=== PATIENT | male | born 1930 | race Caucasian/White ===

== ENCOUNTER → 2017-08-02 | Outpatient (CLI) | payer OTHER ==
[~2017-08-02] MED LIST: CLTP PO; CLX20 PO; FISHOIL PO; LISI-461 PO; LSX20 PO; METO-157 PO; OPTIRAY 320 IV PRN; POTA10CA28 PO; PRLSR20 PO; PROP80TA2 PO; RQPUNK PO; SIMV20TA2 PO
--- NOTE | 2017-08-03 06:27 | DIAGNOSTIC IMAGING REPORT ---
CT OF THE ABDOMEN AND PELVIS WITH AND WITHOUT CONTRAST HEMATURIA PROTOCOL CLINICAL HISTORY: Hematuria. COMPARISON STUDY: [facility]UB April 24, 2008 and whole body bone scan June 20, 2007. TECHNIQUE: Unenhanced and split bolus phase imaging of the abdomen and pelvis was performed. Injection of 119 cc Optiray 320 IV was uneventful. A dose lowering technique was utilized adhering to the principles of ALARA. CT DOSE: 1867.24 mGycm FINDINGS: Note is made of a 6 mm subpleural nodule within the right middle lobe. There is a calcified subcarinal lymph node. A few calcified pulmonary nodules are noted. No renal, ureteral or bladder calculi are identified. There is no hydronephrosis or hydroureter. There is moderate renal cortical thinning. Note is made of an apparent 2.9 x 1.8 cm hypodensity within the mid aspect of the left renal pelvis shown on axial image 178 of 496. This could reflect a mass or a prominent column. No additional masses are identified. A small bladder diverticulum arising from the right anterior aspect the bladder is present. No additional bladder abnormalities are identified. A few subcentimeter hypodense hepatic lesions likely reflect cysts. There are granulomas within the liver and spleen. The adrenal glands and pancreas are unremarkable. There is mild interval dilatation of the distal descending thoracic aorta measures 4 cm. There is mild aneurysmal dilatation of the abdominal aorta at the level the renal arteries that measures 3.3 cm. Note is made of a 5.2 x 4.8 cm infrarenal abdominal aortic aneurysm. There is left colon diverticulosis without evidence for diverticulitis. There are no suspicious osseous lesions. There are brachytherapy CT within the prostate. There are fat-containing bilateral inguinal hernias. IMPRESSION: 1. 2.8 x 1.8 cm hypodensity within the mid left renal pelvis. This could reflect a mass such as a urothelial lesion or a column of Romaine. An MRI of the kidneys may be of benefit in further differentiation. 2. No urinary calculi or hydronephrosis. 3. 5.2 x 4.8 cm infrarenal abdominal aortic aneurysm. 4. 6 mm subpleural right middle lobe nodule which is indeterminate although likely benign. Electronically signed by: Erich Bolden M.D. 08/03/2017 6:26 AM Dictated Date/Time: 08/02/2017 2:53 PM
== END | disposition home or self-care (01) ==
LOC: C.CTS 13:41
PROVIDERS: ATTEND Nurse Practitioner Adult Health
DX: R31.9 Hematuria, unspecified (principal); R91.1 Solitary pulmonary nodule; C61 Malignant neoplasm of prostate

== ENCOUNTER → 2017-08-02 | Outpatient (CLI) | payer OTHER ==
[~2017-08-02] MED LIST changes: -OPTIRAY 320 IV PRN
== END | disposition home or self-care (01) ==
LOC: C.PATHSPEC 10:51
PROVIDERS: ATTEND Urology
DX: R31.9 Hematuria, unspecified (principal); C61 Malignant neoplasm of prostate

== ENCOUNTER → 2017-09-03 | Outpatient (CLI) | payer OTHER ==
[~2017-09-03] MED LIST changes: +GADAVIST IV PRN
[2017-09-03 09:18] LABS: BLOOD UREA NITROGEN 21 mg/dl (7-18); BUN/CREATININE RATIO 15.4 (10-20); CREATININE 1.33 mg/dl (0.60-1.40); PROSTATE SPECIFIC ANTIGEN < 0.010 ng/ml (0.000-4.000)
--- NOTE | 2017-09-03 16:14 | DIAGNOSTIC IMAGING REPORT ---
ABDOMEN COMBO HISTORY: 86 years-old Male R31.9 [id number] Kidney lesionnot diabetic, no metal implant acute hematuria and diabetes. Follow-up study to assess 2.8 x 1.8 cm indeterminate lesion of the mid left kidney seen on CT 08/02/2017. History of 5.2 cm infrarenal abdominal aortic aneurysm. COMPARISON: CT abdomen and pelvis 08/02/2017 TECHNIQUE: Multiplanar multisequence MRI of the abdomen was obtained both with and without the use of 6 mL Gadavist utilizing kidney mass institutional protocol. FINDINGS: Exam is mildly motion degraded. The previously noted 6 mm subpleural nodule of the right middle lobe is not clearly seen on this study. Fusiform infrarenal abdominal aortic aneurysm is again seen measuring up to 4.5 cm in transverse dimension as seen on image 1 of series 4. There is mild convex right curvature of the upper lumbar spine. Multilevel degenerative changes of the spine and pelvis are noted. Image gallbladder, liver, spleen and pancreas are unremarkable. No biliary ductal dilation. No pathologic adenopathy identified. Mild nonspecific perinephric edema is again seen bilaterally which appears unchanged from comparison CT. Multifocal mild renal parenchyma thinning appears generally symmetric. There is a focal 2.8 x 1.7 x 1.8 cm heterogeneous centrally T2 hyperintense thick-walled lesion of the interpolar left kidney as seen on image 12 of series 4 and image 13 of series 9 projecting into the renal sinus correlating with the abnormality seen on comparison CT study. This lesion demonstrates thick nodular peripheral and internal septal enhancement as seen on image 32 of series 1102 without extension into the renal vein identified. No capsular extension outside the left perinephric space. No adenopathy identified. IMPRESSION: 1. 2.8 x 1.7 x 1.8 cm heterogeneous centrally T2 hyperintense enhancing thick-walled lesion of the interpolar left kidney as above is very suspicious for renal cell carcinoma. No extension into the renal vein or outside the left perinephric space. 2. Fusiform infrarenal abdominal aortic aneurysm redemonstrated. The above report was generated using voice recognition software. It may contain grammatical, syntax or spelling errors. Electronically signed by: Sheldon Gallardo M.D. 09/03/2017 4:13 PM Dictated Date/Time: 09/03/2017 10:26 AM
== END | disposition home or self-care (01) ==
LOC: C.MRI 08:18
PROVIDERS: ATTEND Urology
DX: N28.9 Disorder of kidney and ureter, unspecified (principal); R31.9 Hematuria, unspecified; R39.9 Unspecified symptoms and signs involving the genitourinary system; C61 Malignant neoplasm of prostate; I71.4 Abdominal aortic aneurysm, without rupture

== ENCOUNTER → 2018-03-07 | Outpatient (CLI) | payer OTHER ==
[~2018-03-07] MED LIST changes: -GADAVIST IV PRN
--- NOTE | 2018-03-07 11:22 | DIAGNOSTIC IMAGING REPORT ---
ULTRASOUND KIDNEYS AND BLADDER CLINICAL HISTORY: Renal mass. COMPARISON STUDY: Abdominal CT dated 08/02/2017. Abdominal MRI dated 09/03/2017. TECHNIQUE: Real-time, grayscale, and color flow sonography of the kidneys and bladder is performed. Images are reviewed in the transverse and longitudinal planes. FINDINGS: Kidneys: The kidneys demonstrate cortical atrophy. The right kidney measures 11.9 x 4.7 x 4.9 cm and the left kidney measures 12.1 x 6.2 x 5.8 cm. There is no hydronephrosis. No shadowing renal calculi are identified. Avascular mass lesion is again seen in the interpolar left kidney and measures 2.6 x 2.2 x 1.8 cm. A subcentimeter cyst is noted on the right. No perinephric fluid is identified. Bladder: The bladder wall appears thickened and trabeculated suggesting chronic outlet obstruction. Ureteral jets were not seen. IMPRESSION: 1. The kidneys are atrophic and without hydronephrosis. 2. A 2.6 cm mass lesion with internal flow is again seen in the interpolar left kidney. This should be considered renal neoplasm until proven otherwise. 3. The bladder wall is thickened and trabeculated indicator chronic outlet obstruction. Electronically signed by: Petey Lopez M.D. 03/07/2018 11:20 AM Dictated Date/Time: 03/07/2018 11:17 AM
== END | disposition home or self-care (01) ==
LOC: C.ULTR 10:19
PROVIDERS: ATTEND Urology
DX: N28.89 Other specified disorders of kidney and ureter (principal)